=== PATIENT | male | born 1970 | race Caucasian/White ===

== ENCOUNTER 2017-09-06 14:26 | Emergency (ER) | payer BC ==
[~2017-09-06 14:26] MED LIST: LEVO.05 PO
[2017-09-06 14:31] VITALS: BP 140/102; PULSE 88; RESP 16; TEMP 98.2; O2SAT 98
--- NOTE | 2017-09-06 14:53 | RADRPT ---
EXAM DATE/TIME: 09/06/2017 14:46 [facility] COMPARISON: No previous studies available for comparison. INDICATIONS : Chest pain. MEDICAL HISTORY : None. SURGICAL HISTORY : None. ENCOUNTER: Initial ACUITY: 2 days PAIN SCORE: 4/10 LOCATION: Bilateral chest FINDINGS: Diffuse miliary pattern of nodules bilaterally. Cardiomediastinal contours are within normal limits. Bony thorax is intact. CONCLUSION: 1. Nearly miliary pattern of bilateral pulmonary nodules. Differential considerations include infecti ous and malignant etiologies. Comparisons with prior examinations would be beneficial in further eval uation. Salas Tucker MD on September 06, 2017 at 14:50 Board Certified Radiologist. This report was verified electronically.
[2017-09-06] MEDS ORDERED: LIOT5TAB3 (15:03)
[2017-09-06] MEDS ORDERED: LEVO50TA4 PO (15:03)
--- NOTE | 2017-09-06 15:12 | PD ---
HPI Chief Complaint: Pain: Acute or Chronic Time Seen by Provider: 14:51 Travel History International Travel<30 days: No Contact w/Intl Traveler<30days: No Traveled to known affect area: No History of Present Illness HPI 46-year-old male presents emergency department complaining of chest heaviness, shortness of breath, sore throat, and nonproductive cough for 2-3 days. States that he started having a "itchy throat" Wednesday and then developed a chest pressure and shortness of breath on Wednesday. States that his chest pressure is midsternal and has some pain through the back. No palliative or provokative factors. Patient says that he has felt feverish with some chills last night. His cough is nonproductive. He has a history of hypothyroid and low testosterone. He takes testosterone injections 1mg every 10 days, says he self administers them. His last testosterone injection was 3 weeks ago. Patient denies history of hypertension, hyperlipidemia, family history of coronary artery disease. Pt does not have a PCP. PFSH Past Medical History Diminished Hearing: No Thyroid Disease: Yes (HYPOTHYROIDISM) Past Surgical History Other Surgery: Yes (PYLONIDAL CYST X 2) Social History Alcohol Use: Yes Tobacco Use: No (QUIT 2006) Substance Use: No Allergies-Medications (Allergen,Severity, Reaction): Coded Allergies: No Known Allergies (Verified Allergy, Mild, 05/21/08) Reported Meds & Prescriptions Reported Meds & Active Scripts Active Medrol Dosepak (Methylprednisolone) 4 Mg Dspk 4 Mg PO DIRECTED Per Pharmacist direction Ventolin Hfa 18 GM Inh (Albuterol Sulfate) 90 Mcg/Act Aer 2 Puff INH Q4-6H PRN Reported Liothyronine (Liothyronine Sodium) 5 Mcg Tab 12.5 Mcg DAILY Levothyroxine (Levothyroxine Sodium) 50 Mcg Tab 50 Mcg PO DAILY Review of Systems Except as stated in HPI: all other systems reviewed are Neg Physical Exam Narrative GENERAL: WD, WN in NAD SKIN: Focused skin assessment warm/dry. HEAD: Atraumatic. Normocephalic. EYES: Pupils equal and round. No scleral icterus. No injection or drainage. ENT: No nasal bleeding or discharge. Mucous membranes pink and moist. NECK: Trachea midline. No JVD. no lymphadenopathy CARDIOVASCULAR: Regular rate and rhythm. No murmur appreciated. RESPIRATORY: No accessory muscle use. Wheezing diffuse GASTROINTESTINAL: Abdomen soft, non-tender, nondistended. MUSCULOSKELETAL: No obvious deformities. No clubbing. No cyanosis. No edema. NEUROLOGICAL: Awake and alert. No obvious cranial nerve deficits. Motor grossly within normal limits. Normal speech. PSYCHIATRIC: Appropriate mood and affect; insight and judgment normal. Data Data Last Documented VS Vital Signs Date Time Temp Pulse Resp B/P (MAP) Pulse Ox O2 Delivery O2 Flow Rate FiO2 09/06/17 21:43 09/06/17 17:00 90 16 98 09/06/17 14:31 98.2 Orders Orders Electrocardiogram (09/06/17 14:34) Basic Metabolic Panel (Bmp) (09/06/17 14:34) Ckmb (Isoenzyme) Profile (09/06/17 14:34) Complete Blood Count With Diff (09/06/17 14:34) Magnesium (Mg) (09/06/17 14:34) Prothrombin Time / Inr (Pt) (09/06/17 14:34) Act Partial Throm Time (Ptt) (09/06/17 14:34) Troponin I (09/06/17 14:34) Chest, Pa & Lat (09/06/17 14:34) Influenzae A/B Antigen (09/06/17 14:34) D-Dimer (09/06/17 15:02) Group A Rapid Strep Screen (09/06/17 15:02) Albuterol-Ipratropium Neb (Duoneb Neb) (09/06/17 15:15) CKMB (09/06/17 15:00) CKMB% (09/06/17 15:00) Strep Culture (Group A) (09/06/17 15:10) Methylprednisolone So Succ Inj (Solumedr (09/06/17 16:45) Ct Thorax/ Chest W Iv Contrast (09/06/17 ) Iohexol 350 Inj (Omnipaque 350 Inj) (09/06/17 19:34) Ed Discharge Order (09/06/17 21:33) Labs Laboratory Tests Test 09/06/17 15:00 White Blood Count 11.1 TH/MM3 Red Blood Count 5.58 MIL/MM3 Hemoglobin 15.8 GM/DL Hematocrit 46.9 % Mean Corpuscular Volume 84.0 FL Mean Corpuscular Hemoglobin 28.3 PG Mean Corpuscular Hemoglobin Concent 33.7 % Red Cell Distribution Width 13.3 % Platelet Count 278 TH/MM3 Mean Platelet Volume 7.4 FL Neutrophils (%) (Auto) 66.7 % Lymphocytes (%) (Auto) 16.3 % Monocytes (%) (Auto) 14.2 % Eosinophils (%) (Auto) 2.2 % Basophils (%) (Auto) 0.6 % Neutrophils # (Auto) 7.4 TH/MM3 Lymphocytes # (Auto) 1.8 TH/MM3 Monocytes # (Auto) 1.6 TH/MM3 Eosinophils # (Auto) 0.2 TH/MM3 Basophils # (Auto) 0.1 TH/MM3 CBC Comment DIFF FINAL Differential Comment Prothrombin Time 9.9 SEC Prothromb Time International Ratio 1.0 RATIO Activated Partial Thromboplast Time 23.6 SEC D-Dimer Quantitative (PE/DVT) 0.36 MG/L FEU Blood Urea Nitrogen 7 MG/DL Creatinine 0.86 MG/DL Random Glucose 92 MG/DL Calcium Level 8.5 MG/DL Magnesium Level 2.1 MG/DL Sodium Level 136 MEQ/L Potassium Level 4.0 MEQ/L Chloride Level 105 MEQ/L Carbon Dioxide Level 23.9 MEQ/L Anion Gap 7 MEQ/L Estimat Glomerular Filtration Rate 96 ML/MIN Total Creatine Kinase 334 U/L Creatine Kinase MB 4.9 NG/ML Creatine Kinase MB % 1.5 % Troponin I LESS THAN 0.02 NG/ML MDM Medical Decision Making Medical Screen Exam Complete: Yes Emergency Medical Condition: Yes Differential Diagnosis bronchitis, URI, pneumonia Narrative Course 46-year-old male presents emergency department complaining of chest heaviness, shortness of breath, sore throat and nonproductive cough for 2-3 days. States that he started having a "itchy throat" Wednesday and then developed a chest pressure and shortness of breath on Wednesday. States that his chest pressure is midsternal and has some pain through the back. Patient says that he has felt feverish with some chills last night. His cough is nonproductive. He has a history of hypothyroid and low testosterone. He takes testosterone injections 1mg every 10days, says he self administers them. His last testosterone injection was 3 weeks ago. patient denies history of hypertension, hyperlipidemia, family history of coronary artery disease. 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 He does not wear PPD. Vital signs stable. Physical exam findings demonstrate diffuse scant wheezing. No tenderness palpation of the chest wall. No CVA tenderness. Abdomen soft nontender. Labs showed total CK 334, CK-MB 4.9, CK-MB percentage 1.5. Troponin less than 0.02. Second CK ordered for evaluation and cancelled as pt symptoms are explained by the CT chest. Duo nebs 2 administered with some relief. Solumedrol administered. Chest x-ray demonstrates nearly miliary pattern of bilateral pulmonary nodules. Differential considerations including infectious and malignant etiologies. Chest CT with IV contrast ordered. There was an extensive wait in the ED for the CT and readings tonight, accounting for the time spent in the ED today. Laboratory Tests Test 09/06/17 15:00 White Blood Count 11.1 TH/MM3 Red Blood Count 5.58 MIL/MM3 Hemoglobin 15.8 GM/DL Hematocrit 46.9 % Mean Corpuscular Volume 84.0 FL Mean Corpuscular Hemoglobin 28.3 PG Mean Corpuscular Hemoglobin Concent 33.7 % Red Cell Distribution Width 13.3 % Platelet Count 278 TH/MM3 Mean Platelet Volume 7.4 FL Neutrophils (%) (Auto) 66.7 % Lymphocytes (%) (Auto) 16.3 % Monocytes (%) (Auto) 14.2 % Eosinophils (%) (Auto) 2.2 % Basophils (%) (Auto) 0.6 % Neutrophils # (Auto) 7.4 TH/MM3 Lymphocytes # (Auto) 1.8 TH/MM3 Monocytes # (Auto) 1.6 TH/MM3 Eosinophils # (Auto) 0.2 TH/MM3 Basophils # (Auto) 0.1 TH/MM3 CBC Comment DIFF FINAL Differential Comment Prothrombin Time 9.9 SEC Prothromb Time International Ratio 1.0 RATIO Activated Partial Thromboplast Time 23.6 SEC D-Dimer Quantitative (PE/DVT) 0.36 MG/L FEU Blood Urea Nitrogen 7 MG/DL Creatinine 0.86 MG/DL Random Glucose 92 MG/DL Calcium Level 8.5 MG/DL Magnesium Level 2.1 MG/DL Sodium Level 136 MEQ/L Potassium Level 4.0 MEQ/L Chloride Level 105 MEQ/L Carbon Dioxide Level 23.9 MEQ/L Anion Gap 7 MEQ/L Estimat Glomerular Filtration Rate 96 ML/MIN Total Creatine Kinase 334 U/L Creatine Kinase MB 4.9 NG/ML Creatine Kinase MB % 1.5 % Troponin I LESS THAN 0.02 NG/ML Last Impressions Chest X-Ray 09/06/17 1434 Signed Impressions: Service Date/Time: Wednesday, September 06, 2017 14:46 - CONCLUSION: 1. Nearly miliary pattern of bilateral pulmonary nodules. Differential considerations include infectious and malignant etiologies. Comparisons with prior examinations would be beneficial in further evaluation. Salas Tucker MD Chest CT 09/06/17 0000 Signed Impressions: Service Date/Time: Wednesday, September 06, 2017 19:29 - CONCLUSION: Findings consistent with granulomatous exposure. Because of the the widespread nature of the findings and mild hilar and mediastinal emre prominence, followup with repeat CT in 3-4 months would be suggested. Spike Porras MD Patient strongly advised to follow-up with his primary care physician. [facility] information given. Advised the importance of this follow-up. Pt feels much better and is ready to go home. He will be discharged with albuterol inhaler and Medrol Dosepak. Diagnosis Primary Impression: Pulmonary nodules Referrals: [facility] Primary Care Physician Departure Forms: Tests/Procedures, Work Release Enter return to work date: Sep 09, 2017 Additional Instructions: Follow up with your primary care physician regarding findings today. Take medications as prescribed. It is imperative that you have a follow-up CT in 2-3 months. Follow-up with [facility] as discussed. Scripts Methylprednisolone Dosepak (Medrol Dosepak) 4 Mg Dspk 4 MG PO DIRECTED, #1 DSPK 0 Refills Per Pharmacist direction Prov: Avril Menchaca 09/06/17 Albuterol 18 GM Inh (Ventolin Hfa 18 GM Inh) 90 Mcg/Act Aer 2 PUFF INH Q4-6H Y for SHORTNESS OF BREATH, #1 INHALER 0 Refills Prov: Avril Menchaca 09/06/17 Disposition: 01 DISCHARGE HOME Condition: Stable Avril Menchaca Sep 06, 2017 15:12
[2017-09-06] MEDS: RESP: ALBUTEROL 2.5 MG/IPRATROPIUM 0.5 MG NEB (SCH) INH ×2 (15:15→15:30)
[2017-09-06 15:51] LABS: AUTOMATED NEUTROPHIL # 7.4 TH/MM3 (1.8-7.7); BASOPHIL # 0.1 TH/MM3 (0-0.2); BASOPHIL % 0.6 % (0.0-2.0); EOSINOPHIL # 0.2 TH/MM3 (0-0.4); EOSINOPHIL % 2.2 % (0.0-4.0); HEMATOCRIT 46.9 % (39.0-51.0); HEMOGLOBIN 15.8 GM/DL (13.0-17.0); LYMPH % 16.3 % (9.0-44.0); LYMPHOCYTE # 1.8 TH/MM3 (1.0-4.8); MEAN CORPUSCULAR HEMOGLOBIN 28.3 PG (27.0-34.0); MEAN CORPUSCULAR HGB CONC 33.7 % (32.0-36.0); MEAN PLATELET VOLUME 7.4 FL (7.0-11.0); MONO % 14.2 % (0.0-8.0); MONOCYTE # 1.6 TH/MM3 (0-0.9); NEUT % 66.7 % (16.0-70.0); PLATELET COUNT 278 TH/MM3 (150-450); RED BLOOD COUNT 5.58 MIL/MM3 (4.50-5.90); RED CELL DISTRIBUTION WIDTH 13.3 % (11.6-17.2); WHITE BLOOD COUNT 11.1 TH/MM3 (4.0-11.0)
[2017-09-06 16:02] LABS: BICARBONATE 23.9 MEQ/L (21.0-32.0); BLOOD UREA NITROGEN 7 MG/DL (7-18); CALCIUM 8.5 MG/DL (8.5-10.1); CHLORIDE 105 MEQ/L (98-107); CREATININE 0.86 MG/DL (0.60-1.30); GLOMERULAR FILTRATION RATE 96 ML/MIN (>89); GLUCOSE,RANDOM 92 MG/DL (74-106); MAGNESIUM 2.1 MG/DL (1.5-2.5); SODIUM (NA) 136 MEQ/L (136-145)
[2017-09-06 16:05] LABS: TROPONIN I LESS THAN 0.02 NG/ML (0.02-0.05)
[2017-09-06 16:08] LABS: PROTHROMBIN TIME - PATIENT 9.9 SEC (9.8-11.6)
[2017-09-06] MEDS ORDERED: methylPREDNISolone SOD SUCC 125 MG/2 ML VIAL IV PUSH ONE (16:45)
[2017-09-06 17:00] VITALS: BP 134/74; PULSE 90; RESP 16; O2SAT 98
[2017-09-06] MEDS ORDERED: IOHEXOL 350 MG/ML 10 ML VIAL (for RAD DIAG) IVCONTRAST ONE (19:34)
--- NOTE | 2017-09-06 21:03 | RADRPT ---
EXAM DATE/TIME: 09/06/2017 19:29 [facility] COMPARISON: CHEST PA & LAT, September 06, 2017, 14:46. INDICATIONS : Abnormal chest x-ray. IV CONTRAST: 72 cc Omnipaque 350 (iohexol) IV RADIATION DOSE: 5.1 CTDIvol (mGy) MEDICAL HISTORY : None SURGICAL HISTORY : None. ENCOUNTER: Initial ACUITY: 1 day PAIN SCALE: 4/10 LOCATION: Bilateral chest TECHNIQUE: Volumetric scanning of the chest was performed. Using automated exposure control and adjustment of t he mA and/or kV according to patient size, radiation dose was kept as low as reasonably achievable to obtain optimal diagnostic quality images. DICOM format image data is available electronically for review and comparison. Follow-up recommendations for detected pulmonary nodules are based at a minimum on nodule size and pa tient risk factors according to Fleischner Society Guidelines. FINDINGS: LUNGS: There are multiple tiny calcified foci present throughout the lungs bilaterally consistent with granu shantel. No suspicious nodules or masses are identified. There is no evidence of consolidative infiltra te. PLEURA: There is no pleural thickening or pleural effusion. MEDIASTINUM: There is a mildly prominent right hilar lymph nodes and some small nodes in the central mediastinum. There are some emre calcification is present these are felt likely reactive. AXILLAE: Within normal limits. No lymphadenopathy. SKELETAL: Within normal limits for patient age. MISCELLANEOUS: The visualized upper abdominal organs demonstrate no acute abnormality. CONCLUSION: Findings consistent with granulomatous exposure. Because of the the widespread nature of the findings and mild hilar and mediastinal emre prominence, followup with repeat CT in 3-4 months would be citlali ayala. Spike Porras MD on September 06, 2017 at 20:56 Board Certified Radiologist. This report was verified electronically.
[2017-09-06] MEDS ORDERED: MEDR4PAK PO (21:29)
[2017-09-06] MEDS ORDERED: VENTAER INH (21:29)
--- NOTE | 2017-09-07 18:27 | EKG ---
Date Performed: 09/06/2017 Time Performed: 14:57:01 PTAGE: 46 years EKG: Sinus rhythm NORMAL ECG NO PREVIOUS TRACING DOCTOR: Letty Cochran Interpretating Date/Time 09/07/2017 18:21:16
== END 2017-09-06 23:35 | disposition home or self-care (01) ==
LOC: NEPC 14:26
DX: R91.8 Other nonspecific abnormal finding of lung field (principal); E03.9 Hypothyroidism, unspecified
CPT/HCPCS: 71046; 71260; 80048; 82550; 82552; 83735; 84484; 85025; 85379; 85610; 85730; 87081; 87804; 87880; 93005; 94664; 96374; 99285; J2930; Q9967